=== PATIENT | female | born 1970 | race Caucasian/White ===

== ENCOUNTER → 2017-11-11 | Outpatient (CLI) | payer BC | LOC: CIMAGING 10:38 | PROVIDERS: ATTEND Orthopaedic Surgery | DX: Z01.818 Encounter for other preprocedural examination (principal); M17.11 Unilateral primary osteoarthritis, right knee ==

== ENCOUNTER 2017-11-13 07:54 | Observation (INO) | payer BC, OTHER ==
--- NOTE | 2017-11-13 06:25 | PDHPUP ---
History & Physical Update H&P update statement: This history and physical update is based on an assessment of the patient which was completed after admission or registration (within 24 hours), but prior to the surgery/procedure. H&P update: H&P reviewed & patient examined, no change in patient's condition since H&P completed
[~2017-11-13 07:54] MED LIST: ROPIVACAINE 0.2% 80 MG, EPINEPHrine 0.2 MG, KETOROLAC TROMETHAMINE 30 MG in SYRINGE 0 ML IU ONE; TRANEXAMIC ACID 3,000 MG in NS (SYRINGE) 50 ML IRR ONE; TRANEXAMIC ACID 3,000 MG/50 ML BAG IRR ONE; VANCOMYCIN 1 GM VIAL ONE
[2017-11-13] MEDS ORDERED: DEXAMETHASONE 4 MG/ML VIAL ONE (08:28)
[2017-11-13] MEDS ORDERED: ROPIVACAINE HCL 150 MG/30 ML INJ ONE (08:28)
[2017-11-13] MEDS ORDERED: fentaNYL 100 MCG/2 ML INJ ONE (08:29)
[2017-11-13] MEDS ORDERED: PROPOFOL 200 MG/20 ML VIAL ONE (08:32)
[2017-11-13] MEDS ORDERED: LIDOCAINE 2% 2 ML INJ ONE (08:32)
[2017-11-13] MEDS ORDERED: ONDANSETRON 4 MG/2 ML VIAL ONE (08:32)
[2017-11-13] MEDS ORDERED: BUPIVACAINE/DEXTROSE 7.5MG/ML 2 ML SPINAL AMP SP ONE (08:35)
[2017-11-13] MEDS ORDERED: ceFAZolin 2 GM/DEXTROSE 100 ML IV ONE (09:37)
[2017-11-13] MEDS ORDERED: FAMOTIDINE 20 MG TAB PO ONE (09:37)
[2017-11-13] MEDS ORDERED: ACETAMINOPHEN 325 MG TAB PO ONE (09:37)
[2017-11-13] MEDS ORDERED: DEXAMETHASONE 4 MG/ML VIAL IVP ONE (09:37)
[2017-11-13] MEDS ORDERED: LIDOCAINE 1% 2 ML INJ ID PRN (09:38)
[2017-11-13] MEDS ORDERED: LR 1,000 ML IV ONE (09:38)
[2017-11-13] MEDS ORDERED: MIDAZOLAM 2 MG/2 ML VIAL IVP ONE (09:42)
--- NOTE | 2017-11-13 09:59 | PDANEPAE ---
ANE History of Present Illness l knee djd ANE Past Medical History - Cardiovascular History Hx Hypertension: No Hx Arrhythmias: No Hx Chest Pain: No Hx Coronary Artery / Peripheral Vascular Disease: No Hx CHF / Valvular Disease: No Hx Palpitations: No - Pulmonary History Hx COPD: No Hx Asthma/Reactive Airway Disease: No Hx Recent Upper Respiratory Infection: No Hx Oxygen in Use at Home: No Hx Sleep Apnea: No Sleep Apnea Screening Result - Last Documented: Negative - Neurologic History Hx Cerebrovascular Accident: No Hx Seizures: No Hx Dementia: No - Endocrine History Hx Diabetes: No - Renal History Hx Renal Disorders: No - Liver History Hx Hepatic Disorders: No - Neurological & Psychiatric Hx Hx Neurological and Psychiatric Disorders: Yes Neurological / Psychiatric History Comment: ANXIETY. DEPRESSION - Cancer History Hx Cancer: No - Congenital Disorder History Hx Congenital Disorders: No - GI History Hx Gastrointestinal Disorders: No - Other Health History Other Health History: WEARS CONTACTS - Chronic Pain History Chronic Pain: Yes (RIGHT KNEE) - Surgical History Prior Surgeries: 1997 ABD SURG REMOVAL OF BENIGN CYST. SEDATION FOR WISDOM TEETH ANE Review of Systems Review of Systems: - Exercise capacity METS (RN): 5 METS ANE Patient History - Allergies Allergies/Adverse Reactions: erythromycin base Allergy (Verified 10/27/17 12:29) Vomiting - Home Medications Home Medications: FLUoxetine [Prozac 10 MG (*)] 10 mg PO HS 10/20/17 [Last Taken Unknown] Glucosamine/Chondroitin [Glucosamine/Chondroitin (*)] 1 each PO DAILY 10/20/17 [ Last Taken Unknown] Multivitamins [Multivitamin (*)] 1 each PO DAILY 10/20/17 [Last Taken Unknown] [place]-3 Fatty Acids [Fish Oil 1000 mg (*)] 1,000 mg PO DAILY 10/20/17 [Last Taken Unknown] - NPO status NPO Since - Liquids (Date): 11/13/17 NPO Since - Liquids (Time): 07:00 NPO Since - Solids (Date): 11/12/17 NPO Since - Solids (Time): 19:00 - Smoking Hx Smoking Status: Never smoked - Family Anes Hx Family Hx Anesthesia Complications: NONE ANE Labs/Vital Signs - Vital Signs Blood Pressure: 104/75 Heart Rate: 63 Respiratory Rate: 16 O2 Sat (%): 100 Height: 165.1 cm Weight: 61.689 kg ANE Physical Exam - Airway Neck exam: FROM Mallampati Score: Class 1 Mouth exam: normal dental/mouth exam - Pulmonary Pulmonary: no respiratory distress - Cardiovascular Cardiovascular: regular rate and rhythym - ASA Status ASA Status: I ANE Anesthesia Plan Anesthesia Plan: MAC, spinal Regional Anesthesia: single shot NB
[2017-11-13] MEDS ORDERED: LABETALOL HCL 5 MG/ML 20 ML MDV IVP PRN (10:17)
[2017-11-13] MEDS ORDERED: fentaNYL 100 MCG/2 ML INJ IVP PRN (10:17)
[2017-11-13] MEDS ORDERED: PROMETHAZINE HCL 25 MG/ML INJ IVP PRN ×2 (10:17→11:28)
[2017-11-13] MEDS ORDERED: ONDANSETRON 4 MG/2 ML VIAL IVP PRN ×2 (10:17→11:28)
[2017-11-13] MEDS ORDERED: NS 500 ML IV PRN (10:17)
[2017-11-13] MEDS ORDERED: PHENYLEPHRINE HCL 100 MCG/ML SYR IVP PRN (10:17)
[2017-11-13] MEDS ORDERED: HYDROmorphONE/DILAUDID 2 MG/ML INJ IVP PRN (10:17)
[2017-11-13] MEDS ORDERED: NALOXONE HCL 0.4 MG/ML INJ IVP PRN (10:17)
[2017-11-13] MEDS ORDERED: HYDROCODONE/APAP 5/325 TAB PO PRN (10:17)
[2017-11-13] MEDS ORDERED: ALBUTEROL 3 ML DEYVIAL IH PRN (10:17)
[2017-11-13] MEDS ORDERED: PROPOFOL/EMULSION 500 MG/50 ML BOTTLE IV ONE (10:37)
[2017-11-13] MEDS ORDERED: ONDANSETRON DISINTEGRATING 4 MG TAB PO PRN (11:28)
[2017-11-13] MEDS ORDERED: METOCLOPRAMIDE 10 MG/2 ML VIAL IVP PRN (11:28)
[2017-11-13] MEDS ORDERED: POLYETHYLENE GLYCOL 3350 17 GM PKT PO PRN (11:28)
[2017-11-13] MEDS ORDERED: oxyCODONE IR 5 MG TAB PO PRN (11:28)
[2017-11-13] MEDS ORDERED: DIPHENOXYLATE/ATROPINE LOMOTIL 1 TAB PO PRN (11:28)
[2017-11-13] MEDS ORDERED: CYCLOBENZAPRINE 10 MG TAB PO PRN (11:28)
[2017-11-13] MEDS ORDERED: LACTULOSE 20 GM/30 ML UDCUP PO PRN (11:28)
[2017-11-13] MEDS ORDERED: PROMETHAZINE HCL 25 MG SUPPR PR PRN (11:28)
[2017-11-13] MEDS ORDERED: diphenhydrAMINE 25 MG CAP PO PRN (11:28)
[2017-11-13] MEDS ORDERED: MAGNESIUM HYDROXIDE 30 ML UDCUP PO PRN (11:28)
[2017-11-13] MEDS ORDERED: TEMAZEPAM 15 MG CAP PO PRN (11:28)
[2017-11-13] MEDS ORDERED: BISACODYL 10 MG SUPP PR PRN (11:28)
--- NOTE | 2017-11-13 11:28 | POSTOPPROG ---
Post Op Note Date of Operation: 11/13/17 Surgeon: Brandon Azul Heel Slicker: elisa azul Anesthesiologist: dr. mcdaniel Anesthesia: Spinal, Other (Specify) (adductor canal block) Pre-op Diagnosis: right knee medial OA Post-op Diagnosis: same Indication: right knee pain Procedure: R med partial knee arthroplasty robot assisted Findings: severe medial knee OA Inf/Abcess present in the surg proc area at time of surgery?: No EBL: 50-100
[2017-11-13] MEDS ORDERED: LR 1,000 ML IV SCH (11:30)
--- NOTE | 2017-11-13 12:13 | POSTANESTH ---
Post Anesthetic Evaluation Cardiovascular Status: Normal, Stable Respiratory Status: Normal, Stable Level of Consciousness/Mental Status: Can Participate in Eval Pain Control: Adequate, Prn Tx Ordered Nausea/Vomiting Control: Adequate, Prn Tx Ordered Complications Possibly Related to Anesthesia: None Noted
[2017-11-13] MEDS: ACETAMINOPHEN 325 MG TAB PO SCH ×3 (13:50→23:20)
[2017-11-13] MEDS: ceFAZolin 2 GM/DEXTROSE 100 ML IV SCH (18:58)
[2017-11-13] MEDS ORDERED: FLUoxetine 10 MG CAP PO SCH (21:00)
[2017-11-13] MEDS: SENNOSIDES/DOCUSATE SODIUM TAB PO SCH (21:13)
[2017-11-13] MEDS: FAMOTIDINE 20 MG TAB PO SCH (21:13)
[2017-11-13] MEDS: ASPIRIN 81 MG CHEWABLE TAB PO SCH (21:13)
[2017-11-14] MEDS: ceFAZolin 2 GM/DEXTROSE 100 ML IV SCH (01:31)
[2017-11-14] MEDS: ACETAMINOPHEN 325 MG TAB PO SCH (05:16)
[2017-11-14 08:29] VITALS: BP 118/79
--- NOTE | 2017-11-14 08:46 | GOP ---
DATE OF OPERATION: 11/13/2017 SURGEON: Kyle Farnsworth MD PROTECTIVE SERVICES OFFICER: DONOVAN Newton ANESTHESIA: Spinal. PREOPERATIVE DIAGNOSIS: Right knee osteoarthritis. POSTOPERATIVE DIAGNOSIS: Right knee osteoarthritis. PROCEDURE PERFORMED: Right knee medial compartment partial knee replacement with computer navigation and robotic assist. FINDINGS: ESTIMATED BLOOD LOSS: 30 cc. INDICATIONS: This is a 47 year old female with progressive pain of the right knee unresponsive to co nservative care. Risks and benefits of surgical intervention were explained in detail. DESCRIPTION OF PROCEDURE: The patient was brought to the operating room and placed on the table in s upine position. Spinal anesthesia was induced without difficulty. A pneumatic tourniquet was applie d about the right proximal thigh and the leg was prepped and draped in sterile fashion. Attention wa s turned first to the distal aspect of the right femur. At 3 cm proximal to the lateral rise of the femur, 2 percutaneous half pins were placed for fixation of the femoral array. In a similar fashion, 2 pins were placed anterolateral on the tibia for fixation of the tibial array. External land matthew ng and registration of the hip center was performed without difficulty. After exsanguination by elevation, the tourniquet was inflated to 250 mmHg. Incision was made from the tibial tuberosity to the superior pole of the patella. Dissection was car ried out through the subcutaneous tissue to the deep fascia using Bovie electrocautery for hemostasis . Medial parapatellar arthrotomy was carried out to the superior pole of the patella. The medial co llateral ligament was elevated and the infrapatellar fat pad was resected. Internal femoral and tibi al registration was carried out without difficulty and the femoral and tibial checkpoints were placed and verified for accuracy. Attention was turned to the femur. The foot print for the size 2 femoral component was cut with the 6 mm bur using the [employer] robotic system and verified for accuracy against the CT based plan. The hole was cut for the femoral post. In a similar fashion, the 6 mm bur was used to cut the foot print for t he size 2 tibial component using the [employer] system and verified for accuracy against the CT based plan. Attention was turned to the posterior aspect of the knee and remnants of the medial meniscus were exc ised. The posterior capsule was injected with ropivacaine, epinephrine and Toradol. Trial reduction was carried out and there was excellent range of motion, alignment and stability using the size 2 fe moral component and the size 2 tibial component. All trials were then removed. The joint was thoroughly irrigated and carefully dried. One package o f cement and 1 gram of vancomycin were mixed in the vacuum mixer and placed on the fixation surfaces of all components. The components were implanted and all excess cement was thoroughly removed. Impla nt placement was verified against the CT view plan and found to be excellent. The tourniquet was deflated and all bleeders were coagulated. The wound was thoroughly irrigated and closed using interrupted sutures of 2-0 Vicryl for the joint capsule. The subcu was closed with 3-0 Vicryl and the skin with 4-0 Monocryl. Dermabond and Steri-Strips were applied, followed by a compr essive dressing. The patient was then moved from the operating room to the recovery room in good con dition, having tolerated the procedure well. ANESTHESIA: Spinal. CASE CLASSIFICATION: Clean. /[id number]/MODL
[2017-11-14] MEDS: ASPIRIN 81 MG CHEWABLE TAB PO SCH (08:56)
[2017-11-14] MEDS: SENNOSIDES/DOCUSATE SODIUM TAB PO SCH (08:56)
[2017-11-14] MEDS: FAMOTIDINE 20 MG TAB PO SCH (08:57)
--- NOTE | 2017-11-14 10:09 | SOAPPROG ---
SOAP Progress Note Assessment/Plan: Assessment: Patient is doing well POD 1 s/p Right med MPL pain is well controlled VTE ppx: recommend aspirin 81 mg BID for 4 weeks D/c planning: dc to home today. Plan: 11/14/17 10:08 Subjective: patient denies SOB, chest pain and N/V. Objective: Vital Signs Temp Pulse Resp BP Pulse Ox 36.9 C 80 16 118/79 98 11/14/17 08:28 11/14/17 08:28 11/14/17 08:28 11/14/17 08:28 11/14/17 08:28 Laboratory Results 11/14/17 04:36 11/13/17 11/14/17 11/15/17 05:59 05:59 05:59 Intake Total 1495 Output Total 1750 200 Balance -255 -200 RLE: incision dressing is clean and dry, NVI, +pf/df ICD10 Worksheet Patient Problems: Problems Problem Status Onset Primary localized osteoarthritis of right knee Acute
== END 2017-11-14 11:07 | disposition home or self-care (01) ==
LOC: F3N 07:54
PROVIDERS: ADMIT Orthopaedic Surgery; ATTEND Orthopaedic Surgery
PROC: 8E0Y4CZ Robotic Assisted Procedure of Lower Extremity, Percutaneous Endoscopic Approach (ICD-10-PCS; principal; 2017-11-13 10:00)
PROC: 0SRC0J9 Replacement of Right Knee Joint with Synthetic Substitute, Cemented, Open Approach (ICD-10-PCS; principal; 2017-11-13 10:00)
DX: M17.11 Unilateral primary osteoarthritis, right knee (principal)
CPT/HCPCS: 27446; 73560; 97110; 97116; 97161; G0378; C1713; J0171; J0690; J1100; J1885; J2250; J2405; J2704; J2795; J3010; J3370